=== PATIENT | female | born 1970 | race Caucasian/White ===

== ENCOUNTER 2017-06-03 07:35 | Outpatient (CLI) | payer OTHER | END 2017-06-03 07:36 | disposition home or self-care (01) | LOC: BICMAMMO 07:35 | PROVIDERS: ATTEND Obstetrics & Gynecology | DX: Z12.31 Encounter for screening mammogram for malignant neoplasm of breast (principal); Z85.850 Personal history of malignant neoplasm of thyroid | CPT/HCPCS: 77063; 77067; G0202 ==

== ENCOUNTER 2017-06-24 08:00 | Outpatient (CLI) | payer OTHER | END 2017-06-24 08:01 | disposition home or self-care (01) | LOC: BICMAMMO 08:00 | PROVIDERS: ATTEND Obstetrics & Gynecology | DX: N63.10 Unspecified lump in the right breast, unspecified quadrant (principal) | CPT/HCPCS: G0206-LT; G0279 ==

== ENCOUNTER 2018-06-30 14:02 | Outpatient (CLI) | payer OTHER | END 2018-06-30 14:03 | disposition home or self-care (01) | LOC: BICMAMMO 14:02 | PROVIDERS: ATTEND Obstetrics & Gynecology | DX: Z12.31 Encounter for screening mammogram for malignant neoplasm of breast (principal); N63.20 Unspecified lump in the left breast, unspecified quadrant; R92.2 Inconclusive mammogram; Z85.850 Personal history of malignant neoplasm of thyroid | CPT/HCPCS: 77063; 77067 ==

== ENCOUNTER 2018-07-13 15:26 | Outpatient (CLI) | payer OTHER ==
--- NOTE | 2018-07-13 17:28 | ULT ---
LEFT BREAST ULTRASOUND: 07/13/18 HISTORY: Left breast mass increasing in size on mammogram of 06/30/18. FINDINGS: Correlation is made with mammograms of 06/30/18 and 06/24/17. Correlation is also made with the [facility] breast ultrasound of 05/30/13. There are multiple masses in the left breast which are solid, nonshadowing, well-circumscribed seen o n the previous studies. 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 There is a well-circumscribed nonshadowing, oval, solid mass measuring 2.1 x 1.2 x 2 cm at the 11 o'c lock position of the left breast, 5 cm from the nipple corresponding to the mammographic finding (inc rease in size of the breast mass). This was not definitely imaged on the previous ultrasound. Since t his has increased in size on the mammogram, this should be evaluated with an ultrasound guided biopsy . IMPRESSION: Left breast mass at the 11 o'clock position (5 cm from the nipple) should be evaluated with ultrasoun d guided biopsy. Discussed in person with the patient at 4:40 p.m. POS: OFF
== END 2018-07-13 15:27 | disposition home or self-care (01) ==
LOC: BICULT 15:26
PROVIDERS: ATTEND Obstetrics & Gynecology
DX: N63.22 Unspecified lump in the left breast, upper inner quadrant (principal)

== ENCOUNTER → 2018-07-15 | Day surgery (SDC) | payer OTHER ==
--- NOTE | 2018-07-15 14:45 | ULT ---
ULTRASOUND GUIDED CORE BIOPSY MASS AT 11 O'CLOCK LEFT BREAST: ULTRASOUND GUIDED BIOPSY MARKER PLACEEMNT AT BIOPSY SITE: POST PROCEDURE LEFT BREAST MAMMOGRAM: INDICATIONS: A mass at 11 o'clock of the left breast has been previously identified. This mass has demonstrated e nlargement since the prior study, and biopsy is recommended. The patient presents for ultrasound-peña ded biopsy. FINDINGS: The mass at 11 o'clock of the left breast is again identified. This mass was biopsied using a 14 gau [employer] biopsy instrument, with ultrasound guidance. Three 14-gauge core specimens were obtained thr ough the mid portion of the mass, confirmed with ultrasound. A biopsy site marker was placed at the biopsy site within the mass, under ultrasound guidance. Post procedure mammogram confirmed the biopsy marker near the mammogram mass. TECHNIQUE: The left breast was prepped and draped in a sterile manner. The mass at 11 o'clock of the left breas t was identified with ultrasound. Local anesthesia was then administered under ultrasound guidance, with Lidocaine and bicarbonate. A tiny skin incision was made with a scalpel. A 14 gauge [employer] biop sy instrument was introduced with a guide needle in place, under ultrasound guidance. The needle was advanced to the leading edge of the mass. A pre-fire image was obtained. A post-fire image confirm ed biopsy through the mid portion of the mass. This was repeated x3 with three excellent core sample s obtained, placed in formalin. A biopsy marker was then placed at the biopsy site, with ultrasound guidance and confirmation. The patient tolerated the procedure well. There were no problems or complications. The patient was sent to mammogram for post procedure mammogram following the procedure. Dr. March will notify the patient of the pathology report. POS: [facility]
== END ==
LOC: BICULT 12:44
PROVIDERS: ATTEND Obstetrics & Gynecology
PROC: 0HBU3ZX Excision of Left Breast, Percutaneous Approach, Diagnostic (ICD-10-PCS; principal; 2018-07-15)
DX: D24.2 Benign neoplasm of left breast (principal)
CPT/HCPCS: 19083; 88305

== ENCOUNTER 2019-07-19 13:49 | Outpatient (CLI) | payer OTHER ==
--- NOTE | 2019-07-19 16:04 | MMO ---
Bilateral MAMMO Bilat Screen [facility]. CLINICAL HISTORY: Patient is 49 years old and is seen for screening. The patient has the following family history of breast cancer: paternal grandmother. The patient has a history of bilateral Ultrasound Guided Core Biopsy in May, - fibroadenoma and Excisional Biopsy at age 36 - benign. VIEWS: The views performed were: bilateral craniocaudal with tomosynthesis and bilateral mediolateral oblique with tomosynthesis. FILMS COMPARED: The present examination has been compared to prior imaging studies performed at [facility] on 05/11/2016, 06/03/2017, 06/24/2017 and 06/30/2018. This study has been interpreted with the assistance of computer-aided detection. MAMMOGRAM FINDINGS: There are scattered fibroglandular densities. Finding 1: There are a few masses seen in both breasts. Finding remains unchanged from the prior study. Finding 2: There are biopsy clips seen in both breasts. There are no suspicious masses, suspicious calcifications, or new areas of architectural distortion. IMPRESSION: THERE IS NO MAMMOGRAPHIC EVIDENCE OF MALIGNANCY. A ROUTINE FOLLOW-UP MAMMOGRAM IN 1 YEAR IS RECOMMENDED. THE RESULTS OF THIS EXAM WERE SENT TO THE PATIENT. ACR BI-RADS Category 2 - Benign finding MAMMOGRAPHY NOTE: 1. A negative mammogram report should not delay a biopsy if a dominant of clinically suspicious mass is present. 2. Approximately 10% to 15% of breast cancers are not detected by mammography. 3. Adenosis and dense breasts may obscure an underlying neoplasm. Reported by: GERMAIN LANDAVERDE MD Electonically Signed: [id number]
== END 2019-07-19 13:50 | disposition home or self-care (01) ==
LOC: BICMAMMO 13:49
PROVIDERS: ATTEND Obstetrics & Gynecology
DX: Z12.31 Encounter for screening mammogram for malignant neoplasm of breast (principal); Z80.3 Family history of malignant neoplasm of breast; Z91.89 Other specified personal risk factors, not elsewhere classified
CPT/HCPCS: 77063; 77067

== ENCOUNTER 2020-07-26 14:01 | Outpatient (CLI) | payer OTHER | END 2020-07-26 14:02 | disposition home or self-care (01) | LOC: BICMAMMO 14:01 | PROVIDERS: ATTEND Obstetrics & Gynecology | DX: Z12.31 Encounter for screening mammogram for malignant neoplasm of breast (principal); Z80.3 Family history of malignant neoplasm of breast; Z91.89 Other specified personal risk factors, not elsewhere classified | CPT/HCPCS: 77063; 77067 ==

== ENCOUNTER 2021-08-08 09:24 | Outpatient (CLI) | payer BC | END 2021-08-08 09:25 | disposition home or self-care (01) | LOC: BICMAMMO 09:24 | PROVIDERS: ATTEND Obstetrics & Gynecology | DX: Z12.31 Encounter for screening mammogram for malignant neoplasm of breast (principal); Z80.3 Family history of malignant neoplasm of breast; Z85.850 Personal history of malignant neoplasm of thyroid; Z91.89 Other specified personal risk factors, not elsewhere classified | CPT/HCPCS: 77063; 77067 ==

== ENCOUNTER 2022-10-22 08:29 | Outpatient (CLI) | payer BC | END 2022-10-22 08:30 | disposition home or self-care (01) | LOC: BICMAMMO 08:29 | PROVIDERS: ATTEND Obstetrics & Gynecology | DX: Z12.31 Encounter for screening mammogram for malignant neoplasm of breast (principal) | CPT/HCPCS: 77063; 77067 ==